=== PATIENT | male | born 1965 | race African-American/Black ===

== ENCOUNTER 2018-11-12 10:11 | Emergency (ER) | payer OTHER ==
[~2018-11-12] VITALS: Ht 175.3 cm; Wt 99.8 kg
[2018-11-12 10:16] VITALS: BP 185/102
[2018-11-12] MEDS ORDERED: TETRACAINE HCL 0.5% OPTH(EYE) SOLN 4ML RIGHTEYE ONE (10:45)
[2018-11-12] MEDS ORDERED: FLUORESCEIN SOD 1 MG TEST STRIP RIGHTEYE ONE (10:45)
== END 2018-11-12 11:26 | disposition home or self-care (01) ==
LOC: ER 10:11
DX: T15.91XA Foreign body on external eye, part unspecified, right eye, initial encounter (principal); E66.01 Morbid (severe) obesity due to excess calories; Z68.32 Body mass index [BMI] 32.0-32.9, adult; W19.XXXA Unspecified fall, initial encounter; Y93.89 Activity, other specified; Y92.89 Other specified places as the place of occurrence of the external cause; Y99.8 Other external cause status